=== PATIENT | male | born 1995 | race Caucasian/White ===

== ENCOUNTER 2016-06-07 20:15 | Emergency (ER) | payer BC, OTHER ==
[~2016-06-07] VITALS: Ht 172.7 cm; Wt 78.2 kg
[2016-06-07 20:19] VITALS: TEMP 36.7; Ht 172.7 cm; Wt 78.2 kg
[2016-06-07] MEDS ORDERED: OXYCODONE HCL IR 5 MG TAB (IMMEDIATE RELEASE) PO STA (21:25)
[2016-06-07] MEDS ORDERED: OXYCODONE IR HOME PACK PO ONE (21:30)
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
[2016-06-07] MEDS ORDERED: MoRPHine SULFATE 10 MG/ML CARP/VIAL IM STA (22:27)
[2016-06-07] MEDS ORDERED: OXYC1TAB3 PO (22:29)
[2016-06-07] MEDS ORDERED: ONDANSETRON 4MG OD TAB PO ONE (22:30)
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
[2016-06-07 22:41] VITALS: BP 118/75; PULSE 101; O2SAT 99
== END 2016-06-07 22:57 | disposition home or self-care (01) ==
LOC: C.EDB 20:16 → C.EDD 22:57
DX: S62.311A Displaced fracture of base of second metacarpal bone, left hand, initial encounter for closed fracture (principal); S62.313A Displaced fracture of base of third metacarpal bone, left hand, initial encounter for closed fracture; S62.315A Displaced fracture of base of fourth metacarpal bone, left hand, initial encounter for closed fracture; S62.317A Displaced fracture of base of fifth metacarpal bone, left hand, initial encounter for closed fracture; V23.4XXA Motorcycle driver injured in collision with car, pick-up truck or van in traffic accident, initial encounter; Y92.410 Unspecified street and highway as the place of occurrence of the external cause